=== PATIENT | female | born 2000 | race Caucasian/White ===

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

== ENCOUNTER 2023-03-08 02:51 | Emergency (ER) | payer OTHER ==
[2023-03-08 03:16] VITALS: BP 121/76; PULSE 105; RESP 18; TEMP 98.5; BMI 30.6
[2023-03-08] MEDS ORDERED: DEXAMETHASONE 4 MG TABLET (FP) PO ONE (03:37)
[2023-03-08] MEDS ORDERED: DEXAMETHASONE 4 MG TABLET (FP) ONE (03:51)
[2023-03-08] MEDS ORDERED: ALBUTEROL SO4 2.5/IPRATROPIUM 0.5 INH SOL 3 ML VIAL.NEB. NEB ONE ×2 (03:54→03:56)
[2023-03-08] MEDS: ALBUTEROL SO4 2.5/IPRATROPIUM 0.5 INH SOL 3 ML VIAL.NEB. NEB SCH ×3 (03:55→04:15)
[2023-03-08 04:12] LABS: THROAT:GRP A STREP NOT DETECTED (NOTDETECTED)
== END 2023-03-08 05:24 | disposition home or self-care (01) ==
LOC: JER 02:51
PROC: 3E0F7GC Introduction of Other Therapeutic Substance into Respiratory Tract, Via Natural or Artificial Opening (ICD-10-PCS; principal; 2023-03-08)
DX: R06.02 Shortness of breath (principal); R09.89 Other specified symptoms and signs involving the circulatory and respiratory systems; R05.9 Cough, unspecified; J45.901 Unspecified asthma with (acute) exacerbation; J40 Bronchitis, not specified as acute or chronic; J34.89 Other specified disorders of nose and nasal sinuses; Z20.822 Contact with and (suspected) exposure to COVID-19
CPT/HCPCS: 0241U-QW; 71046-TC-FY; 87651; 99284-25

== ENCOUNTER 2024-02-07 10:57 | Emergency (ER) | payer OTHER ==
[2024-02-07 11:26] VITALS: BMI 28.0
[2024-02-07] MEDS ORDERED: ONDANSETRON 4 MG/2 ML VIAL ONE (12:13)
[2024-02-07] MEDS ORDERED: ACETAMINOPHEN INJECTION 100 ML ONE (12:13)
[2024-02-07 12:21] LABS: BASO % 0.3 % (0-2.0); HEMATOCRIT 38.2 % (32.4-45.2); HEMOGLOBIN 13.3 GM/dL (10.7-15.3); LYMPH % 6.3 % (8-40); MCH 31.5 pg (25.7-33.7); MCHC 34.7 g/dl (32.0-36.0); MEAN CELL VOLUME 90.7 fl (80-96); MONO % 14.1 % (3.8-10.2); NEUT % 79.3 % (42.8-82.8); PLATELET COUNT 186 10^3/uL (134-434); RBC 4.21 M/mm3 (3.60-5.2); RDW 12.5 % (11.6-15.6); WHITE BLOOD COUNT 14.4 K/mm3 (4.0-10.0)
[2024-02-07 12:24] LABS: HCG,QUALITATIVE URINE Negative
[2024-02-07 12:26] LABS: EPI CELLS >36 /uL (0-25.1); HYALINE CASTS 4 /uL (0-3.1); INR 1.52 (0.83-1.09); PH,URINE 6.5 (5.0-8.0); PROTHROMBIN TIME (PATIENT) 17.3 SEC (9.7-13.0); URINE APPEARANCE CLOUDY; URINE BACTERIA >9,000 /uL (0-1359); URINE BILIRUBIN NEGATIVE (NEGATIVE); URINE COLOR YELLOW; URINE GLUCOSE (UA) NEGATIVE (NEGATIVE); URINE KETONE 4+ (NEGATIVE); URINE LEUK ESTERASE 1+ (NEGATIVE); URINE NITRITE POSITIVE (NEGATIVE); URINE PROTEIN 1+ (NEGATIVE); URINE RBC 29 /uL (0-23.9); URINE UROBILINOGEN 4.0 E.U/dl mg/dL (0.2-1.0); URINE WBC 167 /uL (0-25.8)
[2024-02-07] MEDS: ACETAMINOPHEN 1000 MG/100 ML BAG IVPB ONE (12:27)
[2024-02-07] MEDS: SODIUM CHLORIDE 0.9% 500 ML INFUS.BAG IV ONE ×2 (12:27→15:50)
[2024-02-07] MEDS: ONDANSETRON 4 MG/2 ML VIAL IVPUSH ONE (12:27)
[2024-02-07 12:28] LABS: ACTIVATED PTT 31.7 SECONDS (25.2-36.5)
[2024-02-07 12:47] LABS: THROAT:GRP A STREP NOT DETECTED (NOTDETECTED)
[2024-02-07] MEDS ORDERED: KETOROLAC TROMETHAMINE 30 MG/1 ML VIAL ONE (12:49)
[2024-02-07] MEDS: KETOROLAC TROMETHAMINE 30 MG/1 ML VIAL IVPUSH ONE (12:53)
[2024-02-07 12:55] LABS: POTASSIUM 3.7 mmol/L (3.5-5.1)
[2024-02-07 12:57] LABS: CALCIUM 8.8 mg/dL (8.5-10.1)
[2024-02-07 12:58] LABS: ALBUMIN 3.8 g/dl (3.4-5.0); BLOOD UREA NITROGEN 3.8 mg/dL (7-18)
[2024-02-07 13:01] LABS: CREATININE 0.6 mg/dL (0.55-1.3)
[2024-02-07 13:03] LABS: BILIRUBIN,TOTAL 0.8 mg/dL (0.2-1); TOT PROT 7.6 g/dl (6.4-8.2)
[2024-02-07] MEDS ORDERED: CEFTRIAXONE 1 GM/50 ML BAG ONE (15:34)
[2024-02-07] MEDS: CEFTRIAXONE 1,000 MG in DEXTROSE 5%-WATER - 50 ML IVPB ONE (15:50)
[2024-02-07 18:21] VITALS: BP 117/74; PULSE 79; RESP 18; TEMP 98.4
== END 2024-02-07 18:20 | disposition home or self-care (01) ==
LOC: JER 10:57
PROC: 3E03329 Introduction of Other Anti-infective into Peripheral Vein, Percutaneous Approach (ICD-10-PCS; principal; 2024-02-07)
PROC: 3E033NZ Introduction of Analgesics, Hypnotics, Sedatives into Peripheral Vein, Percutaneous Approach (ICD-10-PCS; 2024-02-07)
PROC: 3E0333Z Introduction of Anti-inflammatory into Peripheral Vein, Percutaneous Approach (ICD-10-PCS; 2024-02-07)
PROC: 3E033GC Introduction of Other Therapeutic Substance into Peripheral Vein, Percutaneous Approach (ICD-10-PCS; 2024-02-07)
DX: N12 Tubulo-interstitial nephritis, not specified as acute or chronic (principal); R50.9 Fever, unspecified; R00.0 Tachycardia, unspecified; R10.31 Right lower quadrant pain; R11.0 Nausea; Z20.822 Contact with and (suspected) exposure to COVID-19
CPT/HCPCS: 0241U-QW; 36415; 74177-TC; 80053; 81003; 84703; 85025; 85610; 85730; 86850; 86900; 86901; 87086; 87186; 87651; 99285-25; J0131